=== PATIENT | female | born 2000 | race Caucasian/White ===

== ENCOUNTER → 2019-09-22 | Outpatient (CLI) | payer OTHER | LOC: BHSO 13:02 | DX: F33.1 Major depressive disorder, recurrent, moderate (principal) ==

== ENCOUNTER → 2019-10-25 | Outpatient (CLI) | payer OTHER | LOC: BHSO 08:57 | DX: F41.1 Generalized anxiety disorder (principal) ==

== ENCOUNTER → 2019-11-08 | Outpatient (CLI) | payer OTHER | LOC: BHSO 09:01 | DX: F31.81 Bipolar II disorder (principal) ==

== ENCOUNTER → 2019-11-15 | Outpatient (CLI) | payer OTHER | LOC: BHSO 08:55 | DX: F31.81 Bipolar II disorder (principal) ==

== ENCOUNTER → 2019-11-19 | Outpatient (CLI) | payer OTHER | LOC: BHSO 08:56 | DX: F31.81 Bipolar II disorder (principal) ==

== ENCOUNTER → 2019-11-22 | Outpatient (CLI) | payer OTHER | LOC: BHSO 08:53 | DX: F33.0 Major depressive disorder, recurrent, mild (principal) ==

== ENCOUNTER → 2019-11-29 | Outpatient (CLI) | payer OTHER | LOC: BHSO 08:55 | DX: F33.0 Major depressive disorder, recurrent, mild (principal) ==

== ENCOUNTER → 2019-12-06 | Outpatient (CLI) | payer OTHER | LOC: BHSO 09:54 | DX: F31.81 Bipolar II disorder (principal) ==

== ENCOUNTER → 2019-12-13 | Outpatient (CLI) | payer OTHER | LOC: BHSO 08:55 | DX: F31.81 Bipolar II disorder (principal) ==

== ENCOUNTER → 2019-12-16 | Outpatient (CLI) | payer OTHER | LOC: BHSO 08:49 | DX: F31.81 Bipolar II disorder (principal) | CPT/HCPCS: G0463 ==

== ENCOUNTER → 2019-12-20 | Outpatient (CLI) | payer OTHER | LOC: BHSO 08:50 | DX: F31.81 Bipolar II disorder (principal) ==

== ENCOUNTER → 2019-12-27 | Outpatient (CLI) | payer OTHER | LOC: BHSO 08:49 | DX: F31.81 Bipolar II disorder (principal) ==

== ENCOUNTER → 2020-01-03 | Outpatient (CLI) | payer OTHER | LOC: BHSO 08:55 | DX: F31.81 Bipolar II disorder (principal) ==

== ENCOUNTER → 2020-01-24 | Outpatient (CLI) | payer OTHER | LOC: BHSO 09:00 | DX: F31.81 Bipolar II disorder (principal) | CPT/HCPCS: G0463 ==

== ENCOUNTER → 2020-01-31 | Outpatient (CLI) | payer OTHER | LOC: BHSO 09:00 | DX: F31.81 Bipolar II disorder (principal) ==

== ENCOUNTER → 2020-02-07 | Outpatient (CLI) | payer OTHER | LOC: BHSO 11:00 | DX: F31.81 Bipolar II disorder (principal) ==

== ENCOUNTER → 2020-02-14 | Outpatient (CLI) | payer OTHER | LOC: BHSO 10:00 | DX: F31.81 Bipolar II disorder (principal) ==

== ENCOUNTER → 2020-02-21 | Outpatient (CLI) | payer OTHER | LOC: BHSO 09:00 | DX: F31.81 Bipolar II disorder (principal) ==

== ENCOUNTER → 2020-02-29 | Outpatient (CLI) | payer OTHER | LOC: BHSO 03:00 | DX: F31.81 Bipolar II disorder (principal) ==

== ENCOUNTER → 2020-03-06 | Outpatient (CLI) | payer OTHER | LOC: BHSO 09:59 | DX: F31.81 Bipolar II disorder (principal) ==

== ENCOUNTER → 2020-03-16 | Outpatient (CLI) | payer OTHER | LOC: BHSO 09:18 | DX: F31.81 Bipolar II disorder (principal) | CPT/HCPCS: G0463 ==

== ENCOUNTER → 2020-03-28 | Outpatient (CLI) | payer OTHER | LOC: BHSO 13:03 | DX: F31.81 Bipolar II disorder (principal) ==

== ENCOUNTER → 2020-04-11 | Outpatient (CLI) | payer OTHER | LOC: BHSO 13:57 | DX: F31.81 Bipolar II disorder (principal) ==

== ENCOUNTER → 2020-05-01 | Outpatient (CLI) | payer OTHER | LOC: BHSO 13:56 | DX: F31.81 Bipolar II disorder (principal) ==

== ENCOUNTER → 2020-05-15 | Outpatient (CLI) | payer OTHER | LOC: BHSO 14:56 | DX: F31.81 Bipolar II disorder (principal) ==

== ENCOUNTER → 2020-05-31 | Outpatient (CLI) | payer OTHER | LOC: BHSO 13:59 | DX: F31.81 Bipolar II disorder (principal) ==

== ENCOUNTER → 2020-06-08 | Outpatient (CLI) | payer OTHER | LOC: BHSO 13:55 | DX: F31.81 Bipolar II disorder (principal) ==

== ENCOUNTER → 2020-06-13 | Outpatient (CLI) | payer OTHER | LOC: BHSO 11:18 | DX: F31.81 Bipolar II disorder (principal) | CPT/HCPCS: G0463 ==

== ENCOUNTER → 2020-06-22 | Outpatient (CLI) | payer OTHER | LOC: BHSO 13:56 | DX: F31.81 Bipolar II disorder (principal) ==

== ENCOUNTER → 2020-07-05 | Outpatient (CLI) | payer OTHER | LOC: BHSO 14:01 | DX: F31.81 Bipolar II disorder (principal) ==

== ENCOUNTER → 2020-07-18 | Outpatient (CLI) | payer OTHER | LOC: BHSO 13:57 | DX: F31.81 Bipolar II disorder (principal) ==

== ENCOUNTER → 2020-07-21 | Outpatient (CLI) | payer OTHER | LOC: BHSO 15:42 | DX: F31.81 Bipolar II disorder (principal) | CPT/HCPCS: G0463 ==

== ENCOUNTER → 2020-08-01 | Outpatient (CLI) | payer OTHER | LOC: BHSO 13:55 | DX: F31.81 Bipolar II disorder (principal) ==

== ENCOUNTER → 2020-08-16 | Outpatient (CLI) | payer OTHER | LOC: BHSO 13:54 | DX: F31.81 Bipolar II disorder (principal) | CPT/HCPCS: G0463 ==

== ENCOUNTER → 2020-08-22 | Outpatient (CLI) | payer OTHER | LOC: BHSO 13:54 | DX: F31.81 Bipolar II disorder (principal) ==

== ENCOUNTER 2023-01-03 10:16 | Emergency (ER) | payer OTHER ==
[~2023-01-03] VITALS: Ht 157.5 cm; Wt 68.2 kg
[2023-01-03 12:50] LABS: COLLECTION METHOD CLEAN CATCH
[2023-01-03 13:10] LABS: MUCOUS Present (NOT PRESENT); URINE APPEARANCE Clear (CLEAR/HAZY); URINE BACTERIA Rare /hpf (NONE SEEN); URINE BLOOD Negative (NEGATIVE); URINE COLOR Yellow (YELLOW); URINE GLUCOSE Negative (NEGATIVE); URINE KETONE 3+ (NEGATIVE); URINE NITRATE Negative (NEGATIVE); URINE PROTEIN(semi-quant) Negative (NEGATIVE); URINE RBC 0-2 /hpf (0-2); URINE UROBILINOGEN 0.2 E.U/dL (0.2-1.0)
[2023-01-03 14:00] LABS: BASO % 0.5 % (0.0-2.0); EOS % 0.1 % (0.0-4.0); GRAN # 5.9 K/mm3 (1.4-6.5); GRAN % 67.7 % (42.2-75.2); HEMATOCRIT 42.2 % (37.0-47.0); HEMOGLOBIN 14.5 g/dl (12.5-16.0); LYMPH # 2.3 K/mm3 (1.2-3.4); LYMPH % 26.8 % (20.0-51.0); MEAN CELL VOLUME 89 fl (80.0-100.0); MEAN CORPUSCULAR HEMOGLOBIN 31 pg (27-31); MEAN CORPUSCULAR HGB CONC 34 g/dl (33.0-37.0); MEAN PLATELET VOLUME 10.3 fl (7.4-10.4); MONO # 0.4 K/mm3 (0.1-0.6); MONO % 4.7 % (1.7-9.3); PLATELET COUNT 188 K/mm3 (130-400); RED BLOOD COUNT 4.72 M/mm3 (4.10-5.30); REDCELL DISTRIBUTION WIDTH-CV 12.8 % (11.5-14.5)
[2023-01-03 14:25] LABS: ALANINE AMINOTRANSFERASE 11 U/L (0-55); ALBUMIN 4.1 gm/dL (3.5-5.0); ALKALINE PHOSPHATASE 83 U/L (40-150); ANION GAP 10 mmol/L (7-16); AST,SGOT 15 U/L (5-34); BILIRUBIN,TOTAL 0.3 mg/dL (0.2-1.2); BLOOD UREA NITROGEN 9 mg/dL (7-19); CALCIUM 9.4 mg/dL (8.4-10.2); CARBON DIOXIDE 21 mmol/L (22-29); CHLORIDE 108 mmol/L (98-107); CREATININE, serum 0.71 mg/dL (0.57-1.11); GLUCOSE 82 mg/dL (70-99); POTASSIUM 3.7 mmol/L (3.5-4.5); SODIUM 139 mmol/L (136-145); TOTAL PROTEIN 7.4 gm/dL (6.2-8.1)
[2023-01-03 14:37] LABS: TROPONIN-I < 0.010 ng/mL (0.00-0.033)
[2023-01-03 15:39] VITALS: BP 124/88; PULSE 98; TEMP 98.1
== END 2023-01-03 16:32 | disposition home or self-care (01) ==
LOC: COL.ER 10:16
PROVIDERS: Nurse Practitioner Family
DX: R07.89 Other chest pain (principal)
CPT/HCPCS: J1885; J7120